=== PATIENT | male | born 1935 ===

== ENCOUNTER 2021-12-07 11:52 | Emergency (ER) | payer SELFPAY ==
[~2021-12-07] VITALS: Ht 170.2 cm; Wt 83.9 kg
[2021-12-07 13:50] VITALS: BP 140/81
== END 2021-12-07 13:53 ==
LOC: ER 12:05
DX: S62.326A Displaced fracture of shaft of fifth metacarpal bone, right hand, initial encounter for closed fracture (principal); F03.90 Unspecified dementia, unspecified severity, without behavioral disturbance, psychotic disturbance, mood disturbance, and anxiety; X58.XXXA Exposure to other specified factors, initial encounter; Y92.129 Unspecified place in nursing home as the place of occurrence of the external cause
CPT/HCPCS: 99283